=== PATIENT | female | born 1980 | race Caucasian/White ===

== ENCOUNTER → 2017-08-24 | Outpatient (CLI) | payer BC, OTHER ==
[~2017-08-24] MED LIST: FRS325T PO; IBP600T1 PO; IOHEXOL 350 MG/ML 100 ML (OMNIPAQUE 350) VIAL IV ONE; NS 250 ML (IVPB) BAG IV ONE; OXYC-12 PO; PREN1TAB39 PO
--- NOTE | 2017-08-24 14:31 | Diagnostic Imaging Report ---
PROCEDURE: CT abdomen and pelvis with contrast. TECHNIQUE: Multiple contiguous axial images were obtained through the abdomen and pelvis after administration of intravenous contrast. INDICATION: Pelvic pain with palpation, history of hematuria. COMPARISON: 06/13/2008. FINDINGS: Right ovarian cyst measures 5.0 x 4.6 cm. Its wall is thin and it shows no internal complexity. There is a collapsing physiologic follicle in the contralateral left ovary. That follicular cyst measures 1.6 cm. There is a minute amount of pelvic free fluid in the adnexa and cul-de-sac not unremarkable in a female patient of this age. The liver, gallbladder, spleen, adrenals, and pancreas are unremarkable. There is an IUD device in good position. There is no bowel, biliary, or urinary tract obstruction. There is a tiny cyst in the spleen measuring 13 mm noted incidentally. There is no lymphadenopathy. The lung bases and the osseous structures are unremarkable. IMPRESSION: 1. Large right ovarian cyst shows no complexity measuring a long axis of 5 cm. A collapsing involuting follicle in the left ovary noted with trace likely physiologic pelvic free fluid and an IUD device in good position. 2. The remaining abdominopelvic solid and hollow the stripe appeared normal with no evidence of obstruction, appendicitis, or diverticulitis. Dictated by: Dictated on workstation # [id number]
== END ==
LOC: RAD 12:35
PROVIDERS: ATTEND Family Medicine
DX: N83.201 Unspecified ovarian cyst, right side (principal); N83.02 Follicular cyst of left ovary; Z97.5 Presence of (intrauterine) contraceptive device
CPT/HCPCS: 74177

== ENCOUNTER → 2019-04-02 | Outpatient (CLI) | payer BC ==
[~2019-04-02] MED LIST changes: -IOHEXOL 350 MG/ML 100 ML (OMNIPAQUE 350) VIAL IV ONE; -NS 250 ML (IVPB) BAG IV ONE
--- NOTE | 2019-04-02 13:21 | Diagnostic Imaging Report ---
PROCEDURE: CT urinary tract, rule out kidney stone. TECHNIQUE: Multiple contiguous axial images were obtained through the abdomen and pelvis without the use of intravenous contrast. Auto Exposure Controls were utilized during the CT exam to meet ALARA standards for radiation dose reduction. INDICATION: Hematuria and left flank pain. COMPARISON: Correlation is made with prior CT from 08/24/2017. FINDINGS: Lung bases are clear. Small low densities within the liver are again noted, too small to characterize but most likely cysts. The gallbladder is unremarkable. No biliary duct dilatation is seen. The pancreas and spleen are unremarkable. No adrenal mass is detected. No renal calculi are detected. No definite ureteral or bladder calculi are seen. Bladder is decompressed. There is an IUD within the uterus. A cystic lesion in the right adnexa is noted measuring 5.1 cm. This is slightly larger than a cystic lesion at this location on the exam from 2018 in which it measured 4.8 cm. Left ovary is unremarkable. There is no free fluid or fluid collection in the abdomen or pelvis. The bowel loops are normal caliber. No inflammatory changes are seen. IMPRESSION: 1. No evidence of urinary tract calculi or obstruction. 2. 5.1 cm adnexal cyst on the right, slightly larger when compared with study from 08/24/2017. Dictated by: Dictated on workstation # [id number]
== END ==
LOC: RAD 12:23
PROVIDERS: ATTEND Family Medicine
DX: N83.8 Other noninflammatory disorders of ovary, fallopian tube and broad ligament (principal); R31.9 Hematuria, unspecified; R10.9 Unspecified abdominal pain; Z97.5 Presence of (intrauterine) contraceptive device
CPT/HCPCS: 74176

== ENCOUNTER → 2020-01-03 | Outpatient (CLI) | payer BC ==
--- NOTE | 2020-01-03 13:31 | Diagnostic Imaging Report ---
PROCEDURE: US Non-ob pelvis comp/trans. TECHNIQUE: Multiple realtime grayscale images were obtained of the pelvis in various projections endovaginally. Transabdominal imaging was also performed. INDICATION: Abdominal pain in the right lower quadrant and dysuria. Uterus is anteverted measuring 8.4 x 3.6 x 4.4 cm. The endometrium does contain an IUD which appears to be centered in the endometrial canal. There does appear to be abnormal thickening of the endometrium measuring up to 18 mm. There is a small amount of fluid in endometrial canal. Right ovary measures 5.3 x 4.9 x 5.3 cm. Right ovary does contain a large cyst measuring 4.7 x 4.3 x 4.7 cm corresponding with the cyst noted on CT study from 04/02/2019. Left ovary measures 4.1 x 1.9 x 2.1 cm. There is blood flow to both ovaries. No free fluid is detected. IMPRESSION: 1. Abnormally thickened endometrium measuring up to 18 mm. While this could potentially be owing to hyperplasia, possibility of an endometrial polyp or neoplasm cannot be entirely excluded. 2. Right ovarian cyst 4.7 cm in size. Dictated by: Dictated on workstation # [id number]
== END ==
LOC: RAD 11:43
PROVIDERS: ATTEND Family Medicine
DX: N83.201 Unspecified ovarian cyst, right side (principal); R30.0 Dysuria; R93.89 Abnormal findings on diagnostic imaging of other specified body structures
CPT/HCPCS: 76830; 76856

== ENCOUNTER 2020-02-21 05:31 | Outpatient (RCR) | payer BC ==
[~2020-02-21] VITALS: Ht 167.7 cm; Wt 77.3 kg
== END 2020-02-21 10:10 | disposition home or self-care (01) ==
LOC: PREOP 05:31
PROVIDERS: ATTEND Obstetrics & Gynecology
DX: Z01.812 Encounter for preprocedural laboratory examination (principal); E27.8 Other specified disorders of adrenal gland; Z20.828 Contact with and (suspected) exposure to other viral communicable diseases
CPT/HCPCS: 87635

== ENCOUNTER 2020-03-25 08:36 | Outpatient (RCR) | payer BC ==
[~2020-03-25] VITALS: Ht 167.7 cm; Wt 77.3 kg
[2020-03-27] MEDS ORDERED: IBUP-844 PO (14:21)
[2020-03-27] MEDS ORDERED: HYDR2TAB6 PO (14:21)
[2020-03-27] MEDS ORDERED: ACET-93 PO (14:21)
== END 2020-03-25 10:23 | disposition home or self-care (01) ==
LOC: PREOP 08:36
PROVIDERS: ATTEND Obstetrics & Gynecology
DX: Z01.812 Encounter for preprocedural laboratory examination (principal); E27.8 Other specified disorders of adrenal gland

== ENCOUNTER 2020-03-27 10:17 | Day surgery (SDC) | payer BC ==
[~2020-03-27] VITALS: Ht 167.7 cm; Wt 77.3 kg
[2020-03-27] VITALS (11 sets, daily range): BP systolic 118–134; BP diastolic 52–79
[2020-03-27] MEDS ORDERED: MIDAZOLAM 2 MG/2 ML (VERSED) VIAL IVP ONE (11:00)
[2020-03-27] MEDS ORDERED: ceFAZolin INJECTION 1,000 MG in WATER (STERILE) FOR INJECTION 10 ML IV ONE (11:00)
[2020-03-27] MEDS ORDERED: metroNIDAZOLE 500MG/100ML IVPB 100 ML IV ONE (11:00)
[2020-03-27] MEDS: LACTATED RINGERS 1,000 ML IV PRN ×2 (11:03→14:32)
[2020-03-27 11:12] LABS: BASOPHILS % (AUTO) 0 % (0-10); EOSINOPHILS # (AUTO) 0.1 10^3/uL (0.0-0.3); EOSINOPHILS % (AUTO) 1 % (0-10); HEMATOCRIT 40 % (35-52); LYMPHOCYTES # (AUTO) 2.2 10^3/uL (1.0-4.0); LYMPHOCYTES % (AUTO) 40 % (12-44); MEAN CORPUSCULAR HEMOGLOBIN 30 pg (25-34); MEAN CORPUSCULAR HGB CONC 33 g/dL (32-36); MEAN CORPUSCULAR VOLUME 91 fL (80-99); MEAN PLATELET VOLUME 10.1 fL (9.0-12.2); MONOCYTES # (AUTO) 0.2 10^3/uL (0.0-1.0); MONOCYTES % (AUTO) 4 % (0-12); NEUTROPHILS % (AUTO) 55 % (42-75); PLATELET COUNT 217 10^3/uL (130-400); WHITE BLOOD COUNT 5.5 10^3/uL (4.3-11.0)
[2020-03-27] MEDS ORDERED: MIDAZOLAM 2 MG/2 ML (VERSED) VIAL IV ONE (11:15)
[2020-03-27] MEDS ORDERED: fentaNYL INJECTION 100 MCG/2 ML AMP ONE (11:29)
[2020-03-27] MEDS ORDERED: BUPIVACAINE 0.25% 30 ML (SENSORCAINE) VIAL ONE (12:15)
--- NOTE | 2020-03-27 12:41 | Progress Note-Pre Operative ---
Pre-Operative Progress Note H&P Reviewed The H&P was reviewed, patient examined and no changes noted. Date Seen by Provider: Mar 27, 2020 Time Seen by Provider: 12:30 Date H&P Reviewed: Mar 27, 2020 Time H&P Reviewed: 12:30 Pre-Operative Diagnosis: right adnexal cyst, endometriosis ARJEEV DUFF DO Mar 27, 2020 12:41
[2020-03-27] MEDS ORDERED: LIDOCAINE PF 2% 5 ML (XYLOCAINE) VIAL ONE (13:05)
[2020-03-27] MEDS ORDERED: GLYCOPYRROLATE 0.2 MG/ML (ROBINUL) 2 ML VIAL ONE ×2 (13:05)
[2020-03-27] MEDS ORDERED: NEOSTIGMINE 3 MG/3 ML VIAL ONE ×2 (13:05)
[2020-03-27] MEDS ORDERED: ROCURONIUM 10 MG/ML 5 ML SYRINGE IV ONE (13:05)
[2020-03-27] MEDS ORDERED: proPOfol 200 MG/20 ML (DIPRIVAN) VIAL IV ONE (13:05)
[2020-03-27] MEDS ORDERED: ONDANSETRON 4 MG/2 ML (SDV) Z0FRAN ONE (13:05)
[2020-03-27] MEDS ORDERED: SEVOFLURANE (ULTANE) 15 ML INHAL SOLN ONE ×4 (13:05)
--- NOTE | 2020-03-27 14:04 | Operative Report ---
Operative Report Date of Procedure/Surgery Mar 27, 2020 Surgeon (s) RAJEEV DUFF DO Mate Relief (s): NA Post-Operative Diagnosis Right ovarian cyst endometriosis Procedure Performed Laparoscopy with right oophorectomy Description of Procedure Anesthesia Type: General Estimated blood loss (mL): minimal Specimen(s) collected/removed right ovary Description of the Procedure With informed consent the patient was taken to the operating room where general anesthesia was found to be adequate. She was prepped and draped in the usual sterile fashion in the dorsolithotomy position. The bladder was drained with results of clear, yellow urine. A speculum was placed in the vagina and the cervix was grasped with a tenaculum. The Paulo uterine manipulator was then inserted to provide a means of manipulation of the uterus. IUD strings seen Attention was now turned to the abdomen. The umbilicus was injected with 0.25% Marcaine and a 5 mm skin incision was made. The veress needle was then inserted and intraabdominal placement was confirmed with a saline drop test and a drop in pressure. The abdomen was then insufflated to a maximum pressure of 15 mmHg. Two additional incisions were made in the left lower quadrant, lateral to the rectus muscles and avoiding the inferior epigastric vessels. The lower was a 10 mm incision and a 10-12 mmg trocar was inserted. The upper was a 5 mm trocar. Marcaine was injected in the skin prior to each incision. The camera was now inserted with the assistance of the Servoyant. A survey of the pelvis revealed an enlarged right ovary. The cystic lesion took up the entire ovary with no normal ovary seen. The fluid was drained and was noted to be clear/serous fluid. There was evidence of an adhesion of the endometrium to the fundus of the uterus. This was taken down with the harmonic scalpel. As the cystic lesion engulfed the entire ovary and was 5-6 cm, I opted to remove the ovary. There were also adhesions of the ovary to the ovarian fossa and the pelvic sidewall. These were taken down and then the mesosalpinx was incision with the harmonic scalpel. The infundibulopelvic ligament was grasped with the harmonic and then incised. the ovary was now removed with the assistance of an endocatch. There was some endometriosis scarring in the pelvic area and posterior culdesac, but no active endometriosis was noted. The pelvis was now irrigated. The instruments were removed from the abdomen And the gas was suctioned out of the pelvis. There was no active bleeding noted. The fascial incision was closed with 0-Vicryl in a figure of eight fashion and the skin closed with 4-0 Monocryl in subcuticular fashion. Dermabond was placed over the incisions and bandages placed. The instrument were removed from the vagina. No active bleeding was noted. the patient was awakened and taken to recovery in a stable condition. Sponge, lap, needle and instrument counts were correct times two. Findings of the Procedure large right ovarian cyst (6 x 5 cm) complex with fluid. Endometriosis in the pelvic Adhesion of omentum to fundus of uterus Allergies and Home Medications Allergies Coded Allergies: furosemide (Unverified Adverse Reaction, Unknown, 03/27/20) Home Medications No Active Prescriptions or Reported Meds Patient Home Medication List Home Medication List Reviewed: Yes RAJEEV DUFF DO Mar 27, 2020 14:04
--- NOTE | 2020-03-27 14:11 | Anesthesia-General Post-Op ---
General Patient Condition Mental Status/LOC: Same as Preop Cardiovascular: Satisfactory Nausea/Vomiting: Absent Respiratory: Satisfactory Pain: Controlled Complications: Absent Post Op Complications Complications None Follow Up Care/Instructions Patient Instructions None needed. Anesthesia/Patient Condition Patient Condition Patient is doing well, no complaints, stable vital signs, no apparent adverse anesthesia problems. No complications reported per nursing. JEFF LAY CRNA Mar 27, 2020 14:11
[2020-03-27] MEDS ORDERED: ONDANSETRON 4 MG/2 ML (SDV) Z0FRAN IVP PRN ×2 (14:15→14:30)
[2020-03-27] MEDS ORDERED: MEPERIDINE (DEMEROL) INJ 50 MG/ML ONE (14:15)
[2020-03-27] MEDS ORDERED: MEPERIDINE (DEMEROL) INJ 50 MG/ML IVP ONE (14:15)
[2020-03-27] MEDS ORDERED: PROMETHAZINE INJ 25 MG/ML (PHENERGAN) AMP IVP ONE (14:15)
[2020-03-27] MEDS ORDERED: fentaNYL INJECTION 100 MCG/2 ML AMP IVP ONE (14:15)
[2020-03-27] MEDS ORDERED: morphine INJ 10 MG/ML 1ML (SYR OR VIAL) IVP ONE (14:15)
[2020-03-27] MEDS ORDERED: HYDROmorphone 2 MG/ML VIAL (DILAUDID) IV ONE (14:15)
[2020-03-27] MEDS ORDERED: IBUP-844 PO (14:21)
[2020-03-27] MEDS ORDERED: ACET-93 PO (14:21)
[2020-03-27] MEDS ORDERED: HYDR2TAB6 PO (14:21)
--- NOTE | 2020-03-27 14:23 | Discharge Inst-Women's Service ---
Discharge Inst-Women's Serv Depart Medication/Instructions New, Converted or Re-Newed RX: Transmitted to Pharmacy Final Diagnosis right ovarian cyst endometriosis Problems Reviewed?: Yes Consults/Follow Up Additional Follow Up: Yes (1 week for incision check and 4-6 weeks for post op visit) Activity Activity: Activity as Tolerated Driving Instructions: No Driving for 24 Hours NO SMOKING: NO SMOKING Nothing Inside Vagina: No Douching, No [place], No Tampons Diet Discharge Diet: No Restrictions Symptoms to Report to : Swelling Increased, Pain Increased, Constipation(Persistant), Fever Over 101 Degrees F, Vaginal Bleeding Increase, Cramps in Feet or Legs, Vaginal Discharge Foul For Any Problems or Questions: Contact Your Physician Skin/Wound Care Infection Signs and Symptoms: Increased Redness, Foul Odor of Wound, Increased Drainage, Skin Itchy or Has a Rash, Increased Swelling, Temperature Above 101 F Operative Area Clean and Dry: You May Remove Bandage (in 72 hours) Stitches/Doug/Dermabond: Dermabond Bathing Instructions: RAJEEV Browne DO Mar 27, 2020 14:23
[2020-03-27] MEDS ORDERED: ACETAMINOPHEN 500 MG TAB (TYLENOL) PO PRN (14:30)
[2020-03-27] MEDS ORDERED: KETOROLAC 30 MG/ML VIAL IVP ONE ×2 (14:30→15:30)
[2020-03-27] MEDS ORDERED: D5 LR IV SOLUTION 1,000 ML IV SCH (14:30)
[2020-03-27] MEDS ORDERED: IBUPROFEN 600 MG (MOTRIN) TAB PO PRN (14:30)
[2020-03-27] MEDS ORDERED: HYDROmorphone (DILAUDID) 2 MG TAB PO PRN (14:30)
== END 2020-03-27 16:20 | disposition home or self-care (01) ==
LOC: SDC 10:17
PROVIDERS: ATTEND Obstetrics & Gynecology
DX: D27.0 Benign neoplasm of right ovary (principal); N80.9 Endometriosis, unspecified; E66.9 Obesity, unspecified; Z68.27 Body mass index [BMI] 27.0-27.9, adult; Z79.899 Other long term (current) drug therapy; Z88.8 Allergy status to other drugs, medicaments and biological substances
CPT/HCPCS: 36415; 84703; 85025; 87081; 88307

== ENCOUNTER 2020-10-06 05:31 | Outpatient (CLI) | payer BC ==
[~2020-10-06] VITALS: Ht 167.7 cm; Wt 78.1 kg
[~2020-10-06 05:31] MED LIST changes: +ACET-93 PO; +HYDR2TAB6 PO; +IBUP-844 PO
[2020-10-06] MEDS ORDERED: MELO5CAP3 PO (12:50)
== END 2020-10-06 13:09 | disposition home or self-care (01) ==
LOC: PREOP 05:31
PROVIDERS: ATTEND Obstetrics & Gynecology
DX: Z01.818 Encounter for other preprocedural examination (principal)

== ENCOUNTER 2020-10-13 06:43 | Day surgery (SDC) | payer BC ==
[~2020-10-13] VITALS: Ht 167.7 cm; Wt 78.1 kg
[2020-10-13] VITALS (12 sets, daily range): BP systolic 109–123; BP diastolic 54–77
[~2020-10-13 06:43] MED LIST changes: +MELO5CAP3 PO
[2020-10-13] MEDS ORDERED: ceFAZolin INJECTION 1,000 MG in WATER (STERILE) FOR INJECTION 10 ML IV ONE (07:30)
[2020-10-13] MEDS ORDERED: BUPIVACAINE 0.25% 30 ML (SENSORCAINE) VIAL ONE (07:37)
[2020-10-13] MEDS ORDERED: CATHETER FLUSH 10 ML SYR IV PRN (07:45)
[2020-10-13] MEDS ORDERED: ONDANSETRON 4 MG/2 ML (SDV) Z0FRAN ONE ×2 (08:03→10:09)
[2020-10-13] MEDS ORDERED: proPOfol 200 MG/20 ML (DIPRIVAN) VIAL IV ONE (08:03)
[2020-10-13] MEDS ORDERED: ROCURONIUM 10 MG/ML 5 ML SYRINGE IV ONE (08:03)
[2020-10-13] MEDS ORDERED: MIDAZOLAM 2 MG/2 ML (VERSED) VIAL ONE (08:03)
[2020-10-13] MEDS ORDERED: fentaNYL INJ 100 MCG/2 ML AMP ONE (08:03)
[2020-10-13] MEDS: LACTATED RINGERS 1,000 ML IV PRN ×2 (08:05→09:50)
[2020-10-13 08:16] LABS: BASOPHILS % (AUTO) 1 % (0-10); EOSINOPHILS # (AUTO) 0.1 10^3/uL (0.0-0.3); EOSINOPHILS % (AUTO) 2 % (0-10); HEMATOCRIT 40 % (35-52); HEMOGLOBIN 13.4 g/dL (11.5-16.0); LYMPHOCYTES % (AUTO) 35 % (12-44); MEAN CORPUSCULAR HEMOGLOBIN 30 pg (25-34); MEAN CORPUSCULAR HGB CONC 33 g/dL (32-36); MEAN CORPUSCULAR VOLUME 89 fL (80-99); MEAN PLATELET VOLUME 10.6 fL (9.0-12.2); MONOCYTES # (AUTO) 0.2 10^3/uL (0.0-1.0); MONOCYTES % (AUTO) 4 % (0-12); NEUTROPHILS # (AUTO) 3.2 10^3/uL (1.8-7.8); NEUTROPHILS % (AUTO) 58 % (42-75); PLATELET COUNT 217 10^3/uL (130-400); WHITE BLOOD COUNT 5.6 10^3/uL (4.3-11.0)
[2020-10-13 08:39] LABS: NEUTROPHILS % (MANUAL) 58 %
[2020-10-13 08:40] LABS: EOSINOPHILS % (MANUAL) 3 %; LYMPHOCYTES % (MANUAL) 36 %; MONOCYTES % (MANUAL) 3 %; RBC MORPH NORMAL; SMUDGE CELLS SLIGHT
[2020-10-13] MEDS ORDERED: LIDOCAINE 2% 20 ML (XYLOCAINE) VIAL ONE (08:43)
[2020-10-13] MEDS ORDERED: LIDOCAINE PF 2% 5 ML (XYLOCAINE) VIAL ONE (08:44)
--- NOTE | 2020-10-13 08:44 | History & Physical-Surgical ---
HPO-Surgical History of Present Illness Chief Complaint: chronic pelvic pain Diagnosis/Surgical Indication: CHRONIC PELVIC PAIN, SEROUS CYSTADENOMY Procedure: LAPAROSCOPY RESECTION OF ENDOMETRIOSIS, LYSIS OF ADHESIONS, POSSIBLE OVARIAN CYSTECTOMY, POSSIBLE APPENDECTOMY, REMOVAL OF INTRAUTERINE DEVICE Date of Surgery: Oct 13, 2020 Allergies and Home Medications Allergies Coded Allergies: latex (Verified Allergy, Unknown, RASH, 10/06/20) Home Medications Meloxicam, Submicronized 5 Mg Capsule, 5 MG PO UD, (Reported) Last Action: Reviewed Patient Home Medication List Home Medication List Reviewed: Yes Past Tmhgyft-Yzreno-Efofsr Hx Patient Social History Marrital Status: Employed/Student: employed Smoking Status: Never a Smoker 2nd Hand Smoke Exposure: No Recent Hopitalizations: No Immunizations Up To Date Date of Influenza Vaccine: Dec 18, 2010 Seasonal Allergies Seasonal Allergies: Yes (mild) Surgeries Yes (knee scope, RIGHT OOPHORECTOMY, LAPAROSCOPY) Respiratory No Currently Using CPAP: No Currently Using BIPAP: No Cardiovascular No Neurological No Reproductive System : No Hx Reproductive Disorders: Yes Female Reproductive Disorders: Endometriosis (endometriosis, serous cystadenoma) 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 Genitourinary No Gastrointestinal No Musculoskeletal No Endocrine History of Endocrine Disorders: No HEENT History of HEENT Disorders: No Cancer No Psychosocial History of Psychiatric Problem: No Integumentary History of Skin or Integumenta: No Blood Transfusions History of Blood Disorders: No Exam Vital Signs Vital Signs 10/13/20 07:00 Temp 36.4 Pulse 51 Resp 18 B/P (MAP) 120/77 (91) Pulse Ox 98 O2 Delivery Room Air Capillary Refill : Labs Laboratory Tests Test 10/13/20 08:00 Range/Units White Blood Count 5.6 4.3-11.0 10^3/uL Red Blood Count 4.50 3.80-5.11 10^6/uL Hemoglobin 13.4 11.5-16.0 g/dL Hematocrit 40 35-52 % Mean Corpuscular Volume 89 80-99 fL Mean Corpuscular Hemoglobin 30 25-34 pg Mean Corpuscular Hemoglobin Concent 33 32-36 g/dL Red Cell Distribution Width 12.0 10.0-14.5 % Platelet Count 217 130-400 10^3/uL Mean Platelet Volume 10.6 9.0-12.2 fL Immature Granulocyte % (Auto) 0 % Neutrophils (%) (Auto) 58 42-75 % Lymphocytes (%) (Auto) 35 12-44 % Monocytes (%) (Auto) 4 0-12 % Eosinophils (%) (Auto) 2 0-10 % Basophils (%) (Auto) 1 0-10 % Neutrophils # (Auto) 3.2 1.8-7.8 10^3/uL Lymphocytes # (Auto) 2.0 1.0-4.0 10^3/uL Monocytes # (Auto) 0.2 0.0-1.0 10^3/uL Eosinophils # (Auto) 0.1 0.0-0.3 10^3/uL Basophils # (Auto) 0.0 0.0-0.1 10^3/uL Immature Granulocyte # (Auto) 0.0 0.0-0.1 10^3/uL Neutrophils % (Manual) 58 % Lymphocytes % (Manual) 36 % Monocytes % (Manual) 3 % Eosinophils % (Manual) 3 % Smudge Cells SLIGHT Blood Morphology Comment NORMAL General Appearance: Alert, Oriented X3 Respiratory: Clear to Auscultation, Normal Air Movement Cardiovascular: Regular Rate Assessment/Plan Assessment and Plan 1. chronic pelvic pain 2. endometriosis 3. history of serous cystadenoma of ovary 4. IUD present Plan laparoscopy with resection of endometriosis, lysis of adhesions, possible ovarian cystectomy, possible appendectomy, removal of IUD, OIP Risks, bleeding- infection, injury to bowel, bladder and ureter Prophylactic antibiotics (if needed) and SCDs. hold mobic for at least 5 days Admission Diagnosis Admission Status: Other (Outpt Proc) RAJEEV DUFF DO Oct 13, 2020 08:44
[2020-10-13] MEDS ORDERED: GLYCOPYRROLATE 0.2 MG/ML (ROBINUL) 2 ML VIAL ONE (09:03)
[2020-10-13] MEDS ORDERED: KETOROLAC 30 MG/ML VIAL ONE (09:03)
--- NOTE | 2020-10-13 09:59 | Operative Report ---
Operative Report Date of Procedure/Surgery Oct 13, 2020 Surgeon (s) RAJEEV DUFF DO Plant Engineer (s): NA Post-Operative Diagnosis adhesions IUD Procedure Performed laparoscopy with lysis of adhesions IUD removal Description of Procedure Anesthesia Type: General Estimated blood loss (mL): none Specimen(s) collected/removed IUD Description of the Procedure With informed consent the patient was taken to the operating room where general anesthesia was or was found to be adequate. The patient has had a reoccurrence of pelvic pain. It is thought to be related to the IUD, but she has had right lower quadrant pain. Her right tube and ovary have previously been removed due to a serous cystadenoma, and she had a possible cyst on the other ovary so we wanted to visualize this due to the possibility of bilateral serous cystadenomas. Speculum was placed in the vagina and the cervix was grasped with a tenaculum, the IUD was easily removed. Then a uterine manipulator was then inserted. The bladder had previously been drained with a straight cath of clear yellow urine. Attention was now turned to the abdomen after the patient was repositioned. The umbilicus was injected with 0.25 percent Marcaine. A 5 mm skin incision was then made. A varies needle was now inserted and intra-abdominal placement was confirmed with a saline drop test and a drop in pressure. It did feel like the varies needle pulled back a little bit and I was concerned I was insufflating the subcutaneous area or there was an adhesion. So at this point I made a left upper quadrant incision and a 5 mm trocar was inserted. There were no adhesions and there was some insufflation of the subcutaneous or supraperitoneal space. I then inserted a 5 mm trocar in the umbilicus with direct visualization. I inserted two additional trocars in the left lower quadrant lateral to the rectus muscles and avoiding the inferior epigastric vessels. The right tube and oavry were removed and the left had a functional cyst. There were adhesions in the right pelvis and abdomen and I could not visualize the appendix. Because I wanted to review the appendix and an appendectomy if neededAs I needed to be able to visualized the appendix, I took down these adhesions. This took approximately 20 minutes. There was no active bleeding. The appendix was eventually visualized and there were no adhesions involving the appendix and the appendix appeared normal. the pelvis was now irrigated and the instruments were removed and the gas was suctioned. the vaginal instruments were also removed. The incisions were apurva sed with 4-0 monocryl and surgifix. The patient was awakened and taken to recovery in stable condition. Sponge, lap, needle and instrument counts were correct times two. Findings of the Procedure right oophorectomy adhesions of the right pelvis overlying the appendix but the appendix was normal in appearance IUD strings seen Allergies and Home Medications Allergies Coded Allergies: latex (Verified Allergy, Unknown, RASH, 10/06/20) Home Medications Acetaminophen 500 Mg Tablet, 1,000 MG PO Q8H PRN for PAIN-MILD (1-4) Prescribed by: RAJEEV DUFF on 10/13/20 1000 Ibuprofen 600 Mg Tablet, 600 MG PO Q6H Prescribed by: RAJEEV DUFF on 10/13/20 1001 Meloxicam, Submicronized 5 Mg Capsule, 5 MG PO UD, (Reported) Last Action: Reviewed Oxycodone Hcl 5 Mg Tab, 5 MG PO Q4H Prescribed by: RAJEEV DUFF on 10/13/20 1002 Patient Home Medication List Home Medication List Reviewed: Yes RAJEEV DUFF DO Oct 13, 2020 09:59
[2020-10-13] MEDS ORDERED: ACET-93 PO (10:00)
[2020-10-13] MEDS ORDERED: D5 LR IV SOLUTION 1,000 ML IV SCH (10:00)
[2020-10-13] MEDS ORDERED: ONDANSETRON 4 MG/2 ML (SDV) Z0FRAN IVP PRN ×2 (10:00→10:30)
[2020-10-13] MEDS ORDERED: KETOROLAC 30 MG/ML VIAL IVP ONE (10:00)
[2020-10-13] MEDS ORDERED: ACETAMINOPHEN 500 MG TAB (TYLENOL) PO PRN (10:00)
[2020-10-13] MEDS ORDERED: OXC5T PO (10:01)
[2020-10-13] MEDS ORDERED: IBUP-1773 PO (10:01)
--- NOTE | 2020-10-13 10:05 | Discharge Inst-Women's Service ---
Discharge Inst-Women's Serv Depart Medication/Instructions New, Converted or Re-Newed RX: RX on Chart Final Diagnosis pelvic pain pelvic adhesions IUD in place Problems Reviewed?: Yes Consults/Follow Up Additional Follow Up: Yes (1-2 weeks for incision) Activity Activity: Activity as Tolerated Driving Instructions: No Driving for 1 Week NO SMOKING: NO SMOKING Nothing Inside Vagina: No Douching, No [place], No Tampons Diet Discharge Diet: No Restrictions Symptoms to Report to : Bleeding Excessive, Pain Increased, Fever Over 101 Degrees F, Vaginal Bleeding Increase, Cramps in Feet or Legs, Vaginal Discharge Foul For Any Problems or Questions: Contact Your Physician Skin/Wound Care Infection Signs and Symptoms: Increased Redness, Foul Odor of Wound, Increased Drainage, Skin Itchy or Has a Rash, Increased Swelling, Temperature Above 101 F Operative Area Clean and Dry: Keep Incision Clean/Dry Stitches/Doug/Dermabond: Dermabond Bathing Instructions: RAJEEV Browne DO Oct 13, 2020 10:05
[2020-10-13] MEDS ORDERED: HYDROmorphone 2 MG/ML VIAL (DILAUDID) IV ONE (10:30)
[2020-10-13] MEDS ORDERED: morphine INJ 10 MG/ML 1ML (SYR OR VIAL) IVP ONE (10:30)
[2020-10-13] MEDS ORDERED: SEVOFLURANE (ULTANE) 15 ML INHAL SOLN ONE (10:39)
--- NOTE | 2020-10-20 13:31 | Anesthesia-General Post-Op ---
General Patient Condition Mental Status/LOC: Same as Preop Cardiovascular: Satisfactory Nausea/Vomiting: Absent Respiratory: Satisfactory Pain: Controlled Complications: Absent Post Op Complications Complications None Follow Up Care/Instructions Patient Instructions None needed. Anesthesia/Patient Condition Patient Condition Post-dated progress note: Patient was seen on 10-13 at approximately 1100 after the procedure and she was doing well, no complaints, stable vital signs, no apparent adverse anesthesia problems. MATTHEW CAMPA DO Oct 20, 2020 13:31
== END 2020-10-13 12:53 | disposition home or self-care (01) ==
LOC: SDC 06:43
PROVIDERS: ATTEND Obstetrics & Gynecology
DX: N73.6 Female pelvic peritoneal adhesions (postinfective) (principal); N83.292 Other ovarian cyst, left side; N80.9 Endometriosis, unspecified; J30.2 Other seasonal allergic rhinitis; Z90.89 Acquired absence of other organs; Z90.721 Acquired absence of ovaries, unilateral; Z79.899 Other long term (current) drug therapy; Z79.1 Long term (current) use of non-steroidal anti-inflammatories (NSAID); Z79.891 Long term (current) use of opiate analgesic; Z91.040 Latex allergy status
CPT/HCPCS: 36415; 84703; 85007; 85027; 86850; 86900; 86901; 87081

== ENCOUNTER → 2022-11-24 | Outpatient (CLI) | payer BC ==
[~2022-11-24] MED LIST changes: +IBUP-1773 PO; +OXC5T PO
--- NOTE | 2022-11-28 12:49 | Diagnostic Imaging Report ---
INDICATION: Routine screening. Comparison is made with prior mammogram 12/05/2018 and 11/29/2017. 2-D and 3-D bilateral screening mammography was performed with CAD. Scattered fibroglandular densities are identified bilaterally. There is a density in the superior right breast posterior depth on the MLO view which appears more prominent than prior exams. No definite correlate on the CC view is seen. Additional views are recommended. Left breast is unremarkable. No malignant-appearing microcalcifications are identified. Axillae are unremarkable. IMPRESSION: Right breast density. Additional views are recommended for further evaluation. ACR BI-RADS Category 0: Incomplete. (Needs additional imaging evaluation). Result letter will be mailed to the patient. Note: At least 10% of breast cancer is not imaged by mammography. BI-RADS 0 Dictated by: Dictated on workstation # [id number]
== END ==
LOC: RAD 14:13
PROVIDERS: ATTEND Family Medicine
DX: Z00.00 Encounter for general adult medical examination without abnormal findings (principal); Z12.31 Encounter for screening mammogram for malignant neoplasm of breast; N63.10 Unspecified lump in the right breast, unspecified quadrant
CPT/HCPCS: 77063; 77067